=== PATIENT | female | born 1970 | race Caucasian/White ===

== ENCOUNTER 2018-11-19 14:38 | Emergency (ER) | payer MEDICAID ==
[~2018-11-19] VITALS: Ht 160 cm; Wt 113.4 kg
[2018-11-19 14:42] VITALS: Ht 160 cm; Wt 113.4 kg
[2018-11-19 18:21] LABS: BASOPHIL % 0.4 % (0-2); PLATELET COUNT 299 x10^3mcL (130-400); RED CELL DISTRIBUTION WIDTH 17.3 % (11.5-14.5)
[2018-11-19 18:29] LABS: BILIRUBIN TOTAL 0.33 mg/dL (0.20-1.00); CALCIUM 9.7 mg/dL (8.5-10.1); POTASSIUM SERUM 4.1 mmol/L (3.5-5.1)
[2018-11-19 18:31] LABS: ALBUMIN 3.3 g/dL (3.4-5.0); TOTAL PROTEIN, SERUM 8.8 g/dL (6.4-8.2)
[2018-11-19 18:32] LABS: CREATININE SERUM 4.5 mg/dL (0.6-1.0)
[2018-11-19 18:40] LABS: FREE T4 0.92 ng/dL (0.76-1.46); FREE THYROXINE INDEX 2.1 ug/dL (1.4-4.5); T4(THYROXINE) 6.4 ug/dL (4.7-13.3)
[2018-11-19 18:58] LABS: T3 TOTAL 1.2 ng/mL
[2018-11-19 20:40] VITALS: BP 138/75
== END 2018-11-19 20:40 | disposition home or self-care (01) ==
LOC: ED 14:38
PROVIDERS: Specialist
DX: N93.9 Abnormal uterine and vaginal bleeding, unspecified (principal); R10.2 Pelvic and perineal pain; D64.9 Anemia, unspecified; N18.6 End stage renal disease; Z99.2 Dependence on renal dialysis
CPT/HCPCS: 84439